=== PATIENT | female | born 1935 | race Two or more races ===

== ENCOUNTER 2019-01-01 13:00 | Outpatient (CLI) | payer MEDICARE, MEDICAID | END 2019-01-01 23:59 | disposition home or self-care (01) | LOC: WOU 13:00 | PROVIDERS: ATTEND Surgery | DX: L89.154 Pressure ulcer of sacral region, stage 4 (principal); E07.9 Disorder of thyroid, unspecified; F03.90 Unspecified dementia, unspecified severity, without behavioral disturbance, psychotic disturbance, mood disturbance, and anxiety; M62.59 Muscle wasting and atrophy, not elsewhere classified, multiple sites; I51.9 Heart disease, unspecified; Z95.5 Presence of coronary angioplasty implant and graft; Z79.82 Long term (current) use of aspirin; Z79.899 Other long term (current) drug therapy | CPT/HCPCS: 11043; A6402; A6407 ×2 ==